=== PATIENT | female | born 2000 | race Caucasian/White ===

== ENCOUNTER 2018-08-11 22:52 | Emergency (ER) | payer SELFPAY ==
[~2018-08-11] VITALS: Ht 152.4 cm; Wt 47.2 kg
[2018-08-11 23:23] VITALS: BP 126/75
--- NOTE | 2018-08-11 23:28 | NUR ---
TO LOBBY A/W BED, LIBRA PATEL NOTED
--- NOTE | 2018-08-12 00:58 | NUR ---
PT AMBULATED TO BED 06.
--- NOTE | 2018-08-12 01:00 | NUR ---
PT TO ED WITH C/O BODY RASH. PT DENIES CP/SOB. SMALL RASHES NOTED TO ABD AND BACK. PT PLACED INTO BED, PENDING MD SARAH.
[2018-08-12 02:02] VITALS: BP 115/81
--- NOTE | 2018-08-12 02:02 | NUR ---
Patient discharged with v/s stable. Written and verbal after care instructions given and explained. Patient alert, oriented and verbalized understanding of instructions. Ambulatory with steady gait. All questions addressed prior to discharge. ID band removed. Patient advised to follow up with PMD. Rx of BENEDRYL, PREDNISONE given. Patient educated on indication of medication including possible reaction and side effects. Opportunity to ask questions provided and answered.
== END 2018-08-12 02:02 | disposition home or self-care (01) ==
LOC: MED 22:52
DX: T78.40XA Allergy, unspecified, initial encounter (principal); X58.XXXA Exposure to other specified factors, initial encounter
CPT/HCPCS: 99283

== ENCOUNTER 2019-09-23 19:00 | Inpatient (IN) | payer OTHER ==
[~2019-09-23] VITALS: Ht 152.4 cm; Wt 60.8 kg
[2019-09-23 19:30] VITALS: BP 122/76
[2019-09-23] MEDS ORDERED: METHYLERGONOVINE 0.2 MG/ML AMP IM PRN (19:40)
[2019-09-23] MEDS ORDERED: MISOPROSTOL 25 MCG TAB VG PRN (19:40)
[2019-09-23] MEDS ORDERED: fentaNYL 0.1 MG/HR PATCH TD PRN (19:40)
[2019-09-23] MEDS: LACTATED RINGERS 1,000 ML IV SCH (20:10)
[2019-09-23 20:12] LABS: BASOPHILS % (AUTO) 0.4 % (0.0-2.0); EOSINOPHILS % (AUTO) 0.1 % (0.0-4.0); HEMATOCRIT 35.7 % (36-48); HEMOGLOBIN 11.4 g/dL (12.0-16.0); LYMPHOCYTES # (AUTO) 1.6 K/uL (2.5-16.5); LYMPHOCYTES % (AUTO) 16.1 % (20.5-51.1); MEAN CORPUSCULAR HEMOGLOBIN 25 pg (27-31); MEAN CORPUSCULAR HGB CONC 32 g/dL (33-37); MEAN CORPUSCULAR VOLUME 78.8 fL (80-94); MONOCYTES # (AUTO) 0.6 K/uL (0.8-1.0); MONOCYTES % (AUTO) 6.1 % (1.7-9.3); NEUTROPHILS # (AUTO) 7.8 K/uL (1.8-7.7); NEUTROPHILS % (AUTO) 77.3 % (42.2-75.2); PLATELET COUNT (AUTO) 201 K/uL (140-450); RED BLOOD CELL COUNT(AUTO) 4.54 MIL/uL (4.20-5.40); RED CELL DISTRIBUTION WIDTH 16.5 % (11.6-13.7)
[2019-09-23] MEDS ORDERED: ROPIVACAINE 0.2%/NS PREMIX 200 ML EPI ONE (20:28)
[2019-09-23] MEDS ORDERED: ROPIVACAINE 0.2%/NS PREMIX 100 ML EPI SCH (20:45)
[2019-09-23 21:00] LABS: APPEARANCE,URINE CLEAR (CLEAR); BILIRUBIN,URINE NEGATIVE (NEGATIVE); BLOOD, URINE TRACE-I (NEGATIVE); COLOR,URINE YELLOW (YELLOW); LEUKOCYTE ESTERASE ,URINE NEGATIVE (NEGATIVE); NITRITE, URINE NEGATIVE (NEGATIVE); UGLUCOSE NEGATIVE (NEGATIVE)
[2019-09-23] MEDS: OXYTOCIN 20 UNITS/LR PREMIX 1,000 ML IV SCH (21:11)
[2019-09-23 21:13] LABS: ALBUMIN 2.9 g/dL (3.4-5.0); ANION GAP 21.4 (8-16); CARBON DIOXIDE 16.3 mmol/L (21-32); CREATININE 0.8 mg/dL (0.6-1.3); POTASSIUM 3.7 mmol/L (3.5-5.1); TOTAL BILIRUBIN 0.5 mg/dL (0.0-1.0)
[2019-09-23 21:26] LABS: RBC,URINE 0-5 /HPF (0-5); WBC,URINE 0-5 /HPF (0-5)
[2019-09-23] MEDS ORDERED: fentaNYL 0.05 MG/ML VIAL IVP PRN (22:05)
[2019-09-24] MEDS: OXYTOCIN 20 UNITS/LR PREMIX 1,000 ML IV SCH (00:28)
[2019-09-24] MEDS: LACTATED RINGERS 1,000 ML IV SCH (04:13)
[2019-09-24] MEDS ORDERED: ROPIVACAINE 0.2%/NS PREMIX 200 ML EPI ONE (07:38)
--- NOTE | 2019-09-24 08:42 | NUR ---
PATIENT HAS BEEN SCREENED AND CATEGORIZED LOW NUTRITION RISK. PATIENT WILL BE SEEN WITHIN 7 DAYS OF ADMISSION. 09/30/[address]
[2019-09-24] MEDS ORDERED: IBUPROFEN 800 MG TAB PO PRN (09:50)
[2019-09-24] MEDS ORDERED: DOCUSATE SODIUM 100 MG GELCAP PO PRN (09:50)
[2019-09-24] MEDS ORDERED: IBUPROFEN 600 MG TAB PO PRN ×2 (09:50)
[2019-09-24] MEDS ORDERED: OXYTOCIN 10 UNITS/ML VIAL IM PRN (09:50)
[2019-09-24] MEDS ORDERED: BISACODYL 5 MG TABEC PO PRN (09:50)
[2019-09-24] MEDS ORDERED: MEASLES, MUMPS, AND RUBELLA 1 VIAL SQVAC PRN (09:50)
[2019-09-24] MEDS ORDERED: SIMETHICONE 80 MG TAB.CHEW PO PRN (09:50)
[2019-09-24] MEDS ORDERED: METHYLERGONOVINE 0.2 MG/ML AMP IM PRN (09:50)
[2019-09-24] MEDS ORDERED: BENZOCAINE/MENTHOL 20%-0.5% 60 GM CAN TP PRN (09:50)
[2019-09-24] MEDS ORDERED: METHYLERGONOVINE 0.2 MG TAB PO PRN (09:50)
[2019-09-25 07:44] LABS: HEMATOCRIT 30.7 % (36-48); HEMOGLOBIN 9.8 g/dL (12.0-16.0)
== END 2019-09-25 12:05 | disposition home or self-care (01) | DRG 560 ==
LOC: OBSVTOIN 19:00 → MLD 19:00 → MFCC 09-24 11:35
PROVIDERS: ADMIT Obstetrics & Gynecology; ATTEND Obstetrics & Gynecology
PROC: 10E0XZZ Delivery of Products of Conception, External Approach (ICD-10-PCS; principal; 2019-09-24)
PROC: 0KQM0ZZ Repair Perineum Muscle, Open Approach (ICD-10-PCS; 2019-09-24)
PROC: 3E0R3BZ Introduction of Anesthetic Agent into Spinal Canal, Percutaneous Approach (ICD-10-PCS; 2019-09-24)
PROC: 00HU33Z Insertion of Infusion Device into Spinal Canal, Percutaneous Approach (ICD-10-PCS; 2019-09-24)
PROC: 3E0234Z Introduction of Serum, Toxoid and Vaccine into Muscle, Percutaneous Approach (ICD-10-PCS; 2019-09-24)
DX: O69.81X0 Labor and delivery complicated by cord around neck, without compression, not applicable or unspecified (principal); O99.344 Other mental disorders complicating childbirth; F41.9 Anxiety disorder, unspecified; O70.1 Second degree perineal laceration during delivery; O77.0 Labor and delivery complicated by meconium in amniotic fluid; Z37.0 Single live birth; Z3A.40 40 weeks gestation of pregnancy; Z23 Encounter for immunization
CPT/HCPCS: 36415; 51702; 59409; 80053; 81001; 85018; 85025; 86592; 86886; 86900; 86901; 90715; J2590; J2795; J7120